=== PATIENT | female | born 1990 | race Native Hawaiian/Other Pacific Islander ===

== ENCOUNTER 2018-07-30 07:01 | Inpatient (IN) | payer OTHER ==
[2018-07-30 08:05] VITALS: BMI 25.6
[2018-07-30] MEDS ORDERED: Lactated Ringer's 1,000 ML IV ONE (08:20)
[2018-07-30 09:03] LABS: BASO % 0.4 % (0.0-2.0); EOS # 0.2 K/uL (0.0-0.7); EOS % 2.6 % (0.0-4.0); HEMOGLOBIN 12.2 g/dL (11.0-16.0); LYMPH # 1.4 K/uL (1.0-4.3); LYMPH % 24.6 % (20.0-40.0); MEAN CELL VOLUME 84.9 fL (81.0-99.0); MEAN CORPUSCULAR HEMOGLOBIN 29.1 pg (27.0-31.0); MEAN CORPUSCULAR HGB CONC 34.3 g/dL (33.0-37.0); MONO # 0.5 K/uL (0.0-0.8); MONO % 9.4 % (0.0-10.0); NEUT # 3.6 K/uL (1.8-7.0); NRBC % 0.2 % (0.0-2.0); RBC 4.2 Mil/uL (3.80-5.20); RED CELL DISTRIBUTION WIDTH 15.5 % (11.5-14.5); WHITE BLOOD COUNT 5.8 K/uL (4.8-10.8)
[2018-07-30 09:08] LABS: SQUAMOUS EPITHIAL 3 /hpf (0-5); URINE BACTERIA RARE (<OCC); URINE BILIRUBIN NEGATIVE (NEGATIVE); URINE BLOOD 2+ (NEGATIVE); URINE CLARITY Hazy (Clear); URINE COLOR Yellow (YELLOW); URINE GLUCOSE (UA) NORMAL (Normal); URINE LEUKOCYTE ESTERASE 3+ Leu/uL (Negative); URINE PROTEIN NEGATIVE (NEGATIVE); URINE UROBILINOGEN NORMAL mg/dL (0.2-1.0)
[2018-07-30 09:24] LABS: ALB/GLOB RATIO 1.1 (1.0-2.1); ALBUMIN 3.6 g/dL (3.5-5.0); ALT/SGPT 15 U/L (9-52); AST/SGOT 18 U/L (14-36); BLOOD UREA NITROGEN 17 mg/dL (7-17); CALCIUM 9.6 mg/dl (8.6-10.4); GFR NON-AFRICAN AMERICAN > 60
--- NOTE | 2018-07-30 11:52 | OBHP ---
Datetime: 07/30/2018 07:34 IP Adm Impression: Term, intrauterine ; No Active Labor; Intact Membranes IP Admit Plan: Admit to unit; Initiate labor induction protocol Admit Comment, IP Provider: Pt is a 27yo with a LMP of 11/06/17, and a due date of 08/13/18 with gestational diabetes who presents to the [facility] complaining of vaginal bleeding for the past 2 days. P t also states her OBGYN Dr Kwon advised her to present today for an induction of labor. Pt states sh e has had to use 1 pad per day for the past 2 days. She states the bleeding is painless, red/brown, a nd contains some "solid parts". She is unsure if the contents are clots or tissue. Denies abdominal p ain at this time. States she feels some "tightness" in her abdomen, she is unsure if they are contrac tions. Pt states she checks her blood sugars fasting and 2hrs after meals. She states she tried to wa tch her diet, her sugars run about 100, and was 108 earlier today when she checked before coming in. PMH: denies PSH: denies FH: mother- 61, Hx breast cancer, HTN. 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 menarche 10, regular cycles 28d, 5-7days of bleeding, denie s fibroids, denies STIs, denies cysts, denies miscarriages or abortions, reports yearly PAP never abn ormal, Assessment and plan - 27yo at 38.0W with a LMP of 11/06/17, due date of 08/13/18 with gestational diabetes - spoke with Dr Kwon on the phone, advised to admit and induce - CBC: WBC 5.8, Hgb 12.2 - CMP: BUN 17, Cr 0.6, LFT wnl, - UA: blood 2+, LE 3+, Nitrate neg - will insert cervidil, per Dr Kwon's request - LR@125 - Anticipate a vaginal delivery Pt seen, examined, assessment and plan discussed with Dr Abelino Vidal PGY1, [facility] Pelvic Type - PN: Adequate Extremities - PN: Normal Abdomen - PN: Normal Back - PN: Normal Breast - PN: Not Done Lungs - PN: Normal Heart - PN: Normal Thyroid - PN: Normal Neurologic - PN: Not Done HEENT - PN: Normal General - PN: Normal Presentation-Admit: Vertex FHR - Baseline A Provider: 140 Membranes, Provider: Intact Contraction Comments Provider: Ocassional Comments, ACOG Physical Exam: fundal ht: 36cm cervix 1-2 cm dilated, 50% effacement, -3 position (perfomed by Dr Roca) Gestation - Est Wks by US: 38.0 EGA AdmitDate IP: 38.0 Vital Signs Provider: Reviewed; Within Normal Limits IP Chief Complaint: Vaginal bleeding NICHD Variability Prov Fetus A: Moderate 6-25bpm NICHD Accel Fetus A IP Provider: 10X10 NICHD Decel Fetus A IP Provider: None Dilatation, Provider: 1-2 Effacement, Provider: 50 Station, Provider: -3
[2018-07-30] MEDS: Lactated Ringer's 1,000 ML IV SCH ×3 (11:56→13:56)
--- NOTE | 2018-07-30 11:56 | OBADHP ---
Datetime: 07/30/2018 07:34 Admit Comment, IP Provider: Pt is a 27yo with a LMP of 11/06/17, and a due date of 08/13/18 with gestational diabetes who presents to the [facility] complaining of vaginal bleeding for the past 2 days. P t also states her OBGYN Dr Kwon advised her to present today for an induction of labor. Pt states sh e has had to use 1 pad per day for the past 2 days. She states the bleeding is painless, red/brown, a nd contains some "solid parts". She is unsure if the contents are clots or tissue. Denies abdominal p ain at this time. States she feels some "tightness" in her abdomen, she is unsure if they are contrac tions. Pt states she checks her blood sugars fasting and 2hrs after meals. She states she tried to wa tch her diet, her sugars run about 100, and was 108 earlier today when she checked before coming in. PMH: denies PSH: denies FH: mother- 61, Hx breast cancer, HTN. 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 menarche 10, regular cycles 28d, 5-7days of bleeding, denie s fibroids, denies STIs, denies cysts, denies miscarriages or abortions, reports yearly PAP never abn ormal, Assessment and plan - 27yo at 38.0W with a LMP of 11/06/17, due date of 08/13/18 with gestational diabetes - spoke with Dr Kwon on the phone, advised to admit and induce - CBC: WBC 5.8, Hgb 12.2 - CMP: BUN 17, Cr 0.6, LFT wnl, BS 119 - UA: blood 2+, LE 3+, Nitrate neg - will insert cervidil, per Dr Kwon's request - LR@125 - Anticipate a vaginal delivery Pt seen, examined, assessment and plan discussed with Dr Abelino Vidal PGY1, [facility] Pelvic Type - PN: Adequate Extremities - PN: Normal Abdomen - PN: Normal Back - PN: Normal Breast - PN: Not Done Lungs - PN: Normal Heart - PN: Normal Thyroid - PN: Normal Neurologic - PN: Not Done HEENT - PN: Normal General - PN: Normal Presentation-Admit: Vertex FHR - Baseline A Provider: 140 Membranes, Provider: Intact Contraction Comments Provider: Ocassional Comments, ACOG Physical Exam: fundal ht: 36cm cervix 1-2 cm dilated, 50% effacement, -3 position (perfomed by Dr Roca) Gestation - Est Wks by US: 38.0 Vital Signs Provider: Reviewed; Within Normal Limits IP Chief Complaint: Vaginal bleeding NICHD Variability Prov Fetus A: Moderate 6-25bpm NICHD Accel Fetus A IP Provider: 10X10 FHR Category Provider Fetus A: Category I NICHD Decel Fetus A IP Provider: None Dilatation, Provider: 1-2 Effacement, Provider: 50 Station, Provider: -3 EGA AdmitDate IP: 38.0 IP Adm Impression: Term, intrauterine ; No Active Labor; Intact Membranes IP Admit Plan: Admit to unit; Initiate labor induction protocol
[2018-07-30] MEDS ORDERED: Bupivacaine HCl/FentaNYL Cit 100 ML EPI ONE ×2 (13:11→18:18)
[2018-07-30] MEDS ORDERED: Oxytocin 30 UNIT 30 UNITS/500 ML BAG IV ONE ×2 (18:23→18:46)
--- NOTE | 2018-07-30 19:12 | OBPN ---
Datetime: 07/30/2018 18:48 IP Progress Impression: Reassuring heart rate; Reactive non-stress test IP Informed Consent Obtain: Vaginal Delivery IP Procedures: Sterile Vag Exam IP Progress Plan: Continue present management; Induction Membranes, Provider: Intact Contraction Comments Provider: Irregular FHR - Baseline A Provider: 160 Gestation - Est Wks by US: 38.0 Presentation-Admit: Vertex IP Progress Note Comment: Pt seen and examined about 50 mins ago when nora Q 1-2 mins with Ce rvidil in place Cervidil failed out at time of exam VSS/Afebrile BS's 70-80 Q 3-4 hrs and received 250 mls of D5LR Pt received an Epidural and working well Discussed with Dr. Kwon and request to start Pitocin and to reexamined the patient in about 1 hr and performed AROM [place] for Vaginal Delivery Vital Signs Provider: Reviewed; Within Normal Limits NICHD Accel Fetus A IP Provider: 10X10 FHR Category Provider Fetus A: Category I NICHD Variability Prov Fetus A: Minimal - Undetectable to <5bpm Dilatation, Provider: 2 Effacement, Provider: 90 Station, Provider: -2 NICHD Decel Fetus A IP Provider: None (Annotations: Data stored by CPN on behalf of user)
--- NOTE | 2018-07-30 20:20 | OBPN ---
Datetime: 07/30/2018 20:12 IP Progress Impression: Normal progression of labor; Reassuring heart rate; Rupture of membran es IP Informed Consent Obtain: Vaginal Delivery IP Procedures: Artificial ROM; Sterile Vag Exam IP Progress Plan: Continue present management; Augmentation; Anticipate Vaginal Delivery Membranes, Provider: Ruptured Amniotic Fluid Color, Provider: Clear Contraction Comments Provider: 2-3 FHR - Baseline A Provider: 150 Gestation - Est Wks by US: 38.0 Presentation-Admit: Vertex IP Progress Note Comment: Pt seen and examined No c/o's. epidural working well AROM performed with return of clear fluid Reassuring FHT's Pitocin at 6 mU/min Anticipate a vaginal delivery Vital Signs Provider: Reviewed; Within Normal Limits NICHD Accel Fetus A IP Provider: 10X10 NICHD Variability Prov Fetus A: Moderate 6-25bpm Dilatation, Provider: 3 Effacement, Provider: 90 Station, Provider: -1 NICHD Decel Fetus A IP Provider: None
[2018-07-30] MEDS ORDERED: Bupivacaine HCl 0.25% PF (10 ml) Inj ONE (21:30)
--- NOTE | 2018-07-31 00:57 | OBDS ---
DELIVERY PERSONNEL Nurse Produce Sorter Certified: N/A Delivery Doctor: Tammie Kwon MD Scrub Nurse: N/A Stunt Woman: Mona Edward RN Anesthesiologist: DR DANIELS Barrel Roller: SAME Resident: N/A MATERNAL INFORMATION Delivery Anesthesia: Epidural Medications in Delivery: PITOCIN 20 UNITS IV, METHERGINE 1 AMP IM Placenta Cultured: No Maternal Complications: None Provider Comments: pt was fully dilated and pushing, aturmatix, spotnatoe delvyer of head . loose nu chal cord x 1 reduced. aturamic spotenosu deliver of anteior followed by psoteir soulder follweodyb d leiveyr of body. both oral and nasl pasasge of baby were bulc suctione. umbilcia cod was clampe dand cut. baby hadned ot awaiting pediaitrin. cord blood and cord gases colelcted adn sent x 2. sotneoau d elivery of intact palcenta iwth emmabnres. fundus firm. goo dhemosais, no cmpiaiotns. second degree p erineal laceartoin noted and repaited iwth 2-0 and 3-[address] goo dheamoss, no compciation live male ifnat agpars 9,9 ebls 300ml no complicaiotns LABOR SUMMARY EDC: 08/13/2018 00:00 No. Babies in Womb: 1 Attempted: No Labor Anesthesia: Epidural LABOR INFORMATION Reason for Induction: Not Applicable Onset of Labor: 07/30/2018 11:00 Complete Dilatation: 07/30/2018 23:45 Cervical Ripening Agents: Cervidil Oxytocin: Augmentation MEMBRANES Membranes Rupture Method: Artificial Rupture of Membranes: 07/30/2018 20:12 Length of Rupture (hrs): 4.20 Amniotic Fluid Color: Clear Amniotic Fluid Amount: Moderate Amniotic Fluid Odor: Normal STAGES OF LABOR Stage 1 hrs: 12 Stage 1 min: 45 Stage 2 hrs: 0 Stage 2 min: 39 Stage 3 hrs: 0 Stage 3 min: 8 Total Time in Labor hrs: 13 Total Time in Labor min: 32 VAGINAL DELIVERY Episiotomy: None Laceration Repair: Yes Initial Vag Sponge Count: 1 LAP, 10 X-RAYS Final Vag Sponge Count: 1 LAP,19 X-RAYS Initial Vag Sharps Count: 0 Final Vag Sharps Count: 3 Sponge Count Correct: Yes BABY A INFORMATION Infant Delivery Date/Time: 07/31/2018 00:24 Method of Delivery: Vaginal Born in Route : No : N/A Forceps: N/A Vacuum Extraction: N/A SHOULDER DYSTOCIA BABY A Infant Delivery Date/Time: 07/31/2018 00:24 PRESENTATION/POSITION BABY A Presentation: Cephalic Cephalic Presentation: Vertex Breech Presentation: N/A PLACENTA INFORMATION BABY A Placenta Delivery Time : 07/31/2018 00:32 Placenta Method of Delivery: Spontaneous Placenta Status: Delivered SCORES BABY A Heart Rate 1 min: >100 bpm Resp Effort 1 min: Good Cry Reflex Irritability 1 min: Cough or Sneeze or Pulls Away Muscle Tone 1 min: Active Motion Color 1 min: Body Weather[place], Extremities Blue Resuscitation Effort 1 min: N/A SCORE 1 MIN: 9 Heart Rate 5 min: >100 bpm Resp Effort 5 min: Good Cry Reflex Irritability 5 min: Cough or Sneeze or Pulls Away Muscle Tone 5 min: Active Motion Color 5 min: Body Weatherly, Extremities Blue Resuscitation Effort 5 min: N/A SCORE 5 MIN: 9 INFANT INFORMATION BABY A Gestational Age at Delivery: 38.0 Gestational Status: Term Outcome : Liveborn Infant Condition : Stable Sex: Male IDENTIFICATION/MEDS BABY A ID Band Number: [id number] ID Band Location: Left Leg; Left Arm Sensor Applied: Yes Sensor Number: [id number] Sensor Location : Cord Clamp Vitamin K Given : Not Given Erythromycin Given: Not Given WEIGHT/LENGTH BABY A Birthweight (gms): 2805 Weight (lb): 6 Infant Weight (oz): 3 Length Inches: 19.50 Length cms: 49.5 CORD INFORMATION BABY A No. 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
[2018-07-31] MEDS ORDERED: Oxytocin 30 UNIT 500 ML IV ONE (01:01)
[2018-07-31] MEDS ORDERED: Oxycodone/Acetaminophen 5/325 mg Tab PO PRN ×2 (01:01)
[2018-07-31] MEDS ORDERED: Oxytocin 30 UNIT 30 UNITS/500 ML BAG IV ONE (01:45)
[2018-07-31] MEDS: Benzocaine/Menthol 20%-0.5% Topical Spray (60 ml) TOP PRN (06:24)
[2018-07-31 07:31] LABS: BASO # 0.1 K/uL (0.0-0.2); BASO % 1.5 % (0.0-2.0); EOS % 0.4 % (0.0-4.0); HEMOGLOBIN 11.5 g/dL (11.0-16.0); LYMPH # 1.6 K/uL (1.0-4.3); LYMPH % 16.3 % (20.0-40.0); MEAN CORPUSCULAR HEMOGLOBIN 29.9 pg (27.0-31.0); MEAN CORPUSCULAR HGB CONC 35.2 g/dL (33.0-37.0); MONO # 0.6 K/uL (0.0-0.8); MONO % 6.4 % (0.0-10.0); NEUT # 7.6 K/uL (1.8-7.0); NEUT % 75.4 % (50.0-75.0); RBC 3.84 Mil/uL (3.80-5.20); RED CELL DISTRIBUTION WIDTH 15.3 % (11.5-14.5)
[2018-07-31 07:33] LABS: WHITE BLOOD COUNT 10.1 K/uL (4.8-10.8)
[2018-07-31 08:11] LABS: BLOOD UREA NITROGEN 8 mg/dL (7-17); CALCIUM 7.6 mg/dl (8.6-10.4); GFR NON-AFRICAN AMERICAN > 60
[2018-07-31] MEDS: Multiple Vitamins Tab PO SCH (10:02)
--- NOTE | 2018-07-31 11:14 | OBDCSUM ---
Datetime: 07/31/2018 11:11 Discharged to, Provider: Home Follow up at, Provider: Dr pitts Disch Instr Activity: Normal activity Disch Instr Diet: Regular Discharge Instructions, Provider: Routine instructions given Discharge Diagnosis, Provider: Term Delivered Discharge Time: 08/01/2018 10:00 Follow up in weeks, Provider: 6 weeks Disch Referrals: None Contraception discussed, Prov: Yes Discharge Comment, Provider: jamir in am precaiotn gin Contraception after Delivery: Not Planning to Use
--- NOTE | 2018-07-31 11:14 | OBPPN ---
Datetime: 07/31/2018 07:20 PP Pain Prov: Within normal limits PP Nausea Prov: Present PP Flatus Prov: Yes PP BM Prov: No PP Heart Prov: Normal PP Lungs Prov: Normal PP Abdomen/Uterus Prov: Normal PP Lochia Prov: Normal PP Extremities Prov: Normal PP C/S Incision Prov: Not Applicable PP Progress Prov: Normal PP Impression Prov: Normal progression PP Plan Prov: Continue present management PP Progress Note Prov: Pt is a 27 yo female who is PPD#1 after a at 38W, whose was complicated by gestational diabetes. Pt reports mild bleeding and abdominal pain. Pt reprots vom iting 5 times over night, which has ended but nausea has persisted. Pt states she has tried to breast feed but has not yet begun to produce milk, she has been supplementing with bottle feeds. Pt has not been taking any medications for pain, pain has only walked from the bed to the restroom. Pt states s he has been vomiting and has not been drinking very much water. Assessment and plan - 27 yo female who is PPD#1 after a at 38W, with gestational diabetes_ - encourage to walk - encourage to breast feed, consult - susan COUNTS INCLUDE [facility] BEDS AT [facility] for pain - zofran for nausea Pt seen, examined, assessment and plan discussed with Dr Davis Vidal PGY1 agree emil rachel pt seen adn examiend madelyn mcdaniel edbmait boiding passing lfaut plan f/u bmp, cbc desabe puma philip dc in am IP PP Procedures: None Vital Signs Provider PP: Reviewed; Within Normal Limits
--- NOTE | 2018-08-01 01:54 | OBPPN ---
Datetime: 08/01/2018 01:53 PP Pain Prov: Within normal limits PP Nausea Prov: Denies PP Flatus Prov: Yes PP BM Prov: Yes PP Breasts Prov: Normal PP Heart Prov: Normal PP Lungs Prov: Normal PP Abdomen/Uterus Prov: Normal PP Lochia Prov: Normal PP Vulva/Perineum Prov: Normal PP CVA Tenderness Prov: Normal PP Extremities Prov: Normal PP C/S Incision Prov: Not Applicable PP Progress Prov: Normal PP Impression Prov: Normal progression PP Plan Prov: Discharge Vital Signs Provider PP: Reviewed; Within Normal Limits
[2018-08-01] MEDS: Benzocaine/Menthol 20%-0.5% Topical Spray (60 ml) TOP PRN (02:43)
[2018-08-01 08:15] LABS: BASO # 0.1 K/uL (0.0-0.2); BASO % 0.8 % (0.0-2.0); EOS # 0.2 K/uL (0.0-0.7); EOS % 2.6 % (0.0-4.0); HEMOGLOBIN 12.1 g/dL (11.0-16.0); LYMPH # 1.8 K/uL (1.0-4.3); LYMPH % 20.9 % (20.0-40.0); MEAN CELL VOLUME 85.9 fL (81.0-99.0); MEAN CORPUSCULAR HEMOGLOBIN 29.5 pg (27.0-31.0); MEAN CORPUSCULAR HGB CONC 34.3 g/dL (33.0-37.0); MEAN PLATELET VOLUME 7.8 fL (7.2-11.7); MONO # 0.3 K/uL (0.0-0.8); MONO % 3.8 % (0.0-10.0); NEUT # 6.2 K/uL (1.8-7.0); NEUT % 71.9 % (50.0-75.0); NRBC % 0.1 % (0.0-2.0); RBC 4.12 Mil/uL (3.80-5.20); RED CELL DISTRIBUTION WIDTH 15.7 % (11.5-14.5); WHITE BLOOD COUNT 8.7 K/uL (4.8-10.8)
[2018-08-01] MEDS ORDERED: Influenza Vaccine 60 MCG/0.5 ML SYR (3 yr & up) IM ONE (10:00)
[2018-08-01] MEDS: Multiple Vitamins Tab PO SCH (10:11)
--- NOTE | 2018-08-01 16:15 | OBDCSUM ---
Datetime: 08/01/2018 16:13 Discharged to, Provider: Home Follow up at, Provider: Dr Doyle Mcintyre Instr Activity: Normal activity Disch Instr Diet: Regular Discharge Instructions, Provider: Routine instructions given Discharge Diagnosis, Provider: Term Delivered Discharge Time: 08/02/2018 10:00 Follow up in weeks, Provider: Ester Mcintyre Referrals: None Contraception discussed, Prov: Yes Disch Activity Restrictions: No sexual activity; Nothing in vagina - Ricketts, tampons, douche Discharge Comment, Provider: precautisn given dc in am Contraception after Delivery: Not Planning to Use Datetime: 07/31/2018 11:11 Discharge Comment, Provider: dc in am precaiotn gin dc cancelled
--- NOTE | 2018-08-01 16:15 | OBPPN ---
Datetime: 08/01/2018 01:53 PP Progress Note Prov: pt seen and xamend reporting nause and ovmitgn x 1 wpise, no fver, hcils, pt was intially to be dicharge, however cancelled due to smpotms vss pe see above ap s/p ppd #2 with vomiting npo, ivf ofran pn routien postopar magnet cbc, cmp, amylse, lipse ua, ivh
[2018-08-02 07:45] VITALS: BP 89/61; PULSE 80; RESP 18; TEMP 98.6; O2SAT 96
[2018-08-02] MEDS: Multiple Vitamins Tab PO SCH (09:42)
== END 2018-08-02 12:10 | disposition home or self-care (01) | DRG 807 ==
LOC: C.EROB 07:01 → C.4D 08:20 → C.4M 07-31 02:15
PROVIDERS: ADMIT Obstetrics & Gynecology; ATTEND Obstetrics & Gynecology
PROC: 3E0P7VZ Introduction of Hormone into Female Reproductive, Via Natural or Artificial Opening (ICD-10-PCS; 2018-07-30)
PROC: 10E0XZZ Delivery of Products of Conception, External Approach (ICD-10-PCS; principal; 2018-07-31)
PROC: 10907ZC Drainage of Amniotic Fluid, Therapeutic from Products of Conception, Via Natural or Artificial Opening (ICD-10-PCS; 2018-07-31)
DX: O46.93 Antepartum hemorrhage, unspecified, third trimester (principal); O24.425 Gestational diabetes mellitus in childbirth, controlled by oral hypoglycemic drugs; O69.81X0 Labor and delivery complicated by cord around neck, without compression, not applicable or unspecified; Z3A.38 38 weeks gestation of pregnancy; Z79.84 Long term (current) use of oral hypoglycemic drugs; Z37.0 Single live birth